=== PATIENT | female | born 1965 | race Caucasian/White ===

== ENCOUNTER 2017-04-12 16:51 | Observation (INO) | payer BC ==
[~2017-04-12] VITALS: Ht 177.8 cm; Wt 150.5 kg
[2017-04-12] MEDS ORDERED: POTASSIUM99 M1 PO (17:23)
[2017-04-12] MEDS ORDERED: VITAMIN D31000 UNI2 PO (17:23)
[2017-04-12 17:25] VITALS: BP 190/123; BMI 46.0
[2017-04-12 18:40] LABS: BASOPHILS 0.3 % (0-2); EOSINOPHILS 1.2 % (0-7); HEMATOCRIT 44.8 % (36.0-48.0); HEMOGLOBIN 14.9 g/dL (12-16); IMMATURE GRANULOCYTES 0.1 % (0-5); MCH 33.9 pg (26.0-34.0); MCHC 33.3 g/dL (31.0-37.0); MCV 102.1 fL (80.0-100.0); MONOCYTES 6.5 % (2-11); NEUTROPHILS 77.9 % (40-80); PLATELET COUNT 173 10x3/uL (130-400); RBC 4.39 10x6/uL (4.00-5.40); RDW 13.7 % (11.5-14.5); WBC 8.9 10x3/uL (4.8-10.8)
[2017-04-12 19:23] LABS: ALBUMIN 3.6 g/dL (3.4-5.0); ALKALINE PHOSPHATASE 84 U/L (46-116); ALT (SGPT) 72 U/L (10-68); BILIRUBIN - TOTAL 0.54 mg/dL (0.2-1.3); CALC OSMOLALITY 276 mosm/kg (275-300); CALCIUM 8.8 mg/dL (8.5-10.1); CARBON DIOXIDE 25.7 mmol/L (21.0-32.0); CHLORIDE - SERUM 100 mmol/L (98-107); CKMB 0.6 U/L (0.0-3.6); CREATINE KINASE 64 UL (21-215); CREATININE - SERUM 0.8 mg/dL (0.6-1.3); GLUCOSE 145 mg/dL (74-106); POTASSIUM - SERUM 3.6 mmol/L (3.5-5.1); PROTEIN - SERUM 7.9 g/dL (6.4-8.2); SODIUM 138 mmol/L (136-145); UREA NITROGEN 7 mg/dL (7-18); eGFR NON AFRICAN AMERICAN 80 mL/min (90-120)
[2017-04-12 19:24] LABS: TROPONIN-I < 0.017 ng/mL (0.000-0.060)
[2017-04-12 20:46] VITALS: BP 187/113
[2017-04-13 01:15] LABS: CKMB 0.4 U/L (0.0-3.6); CREATINE KINASE 72 UL (21-215)
[2017-04-13 01:16] LABS: TROPONIN-I < 0.017 ng/mL (0.000-0.060)
[2017-04-13 05:30] LABS: CKMB 0.6 U/L (0.0-3.6); CREATINE KINASE 85 UL (21-215)
[2017-04-13 05:35] LABS: TROPONIN-I < 0.017 ng/mL (0.000-0.060)
[2017-04-13 06:57] VITALS: BP 188/108
[2017-04-13 10:06] VITALS: Ht 177.8 cm; Wt 150.5 kg
[2017-04-13 10:27] VITALS: BP 183/96
[2017-04-13 12:45] VITALS: BP 146/76
[2017-04-13 16:25] VITALS: BP 171/95
[2017-04-13 17:34] LABS: T4 THYROXIN - FREE 1.07 ng/dL (0.76-1.46); THYROID STIMULATING HORMONE 6.12 uIU/mL (0.36-3.74)
[2017-04-13 20:49] VITALS: BP 166/95
[2017-04-14 03:51] VITALS: BP 162/98
[2017-04-14 05:17] LABS: BASOPHILS 0.3 % (0-2); HEMATOCRIT 43.9 % (36.0-48.0); HEMOGLOBIN 14.7 g/dL (12-16); IMMATURE GRANULOCYTES 0.1 % (0-5); LYMPHOCYTES 27.1 % (15-50); MCH 33.6 pg (26.0-34.0); MCHC 33.5 g/dL (31.0-37.0); MCV 100.5 fL (80.0-100.0); MEAN PLATELET VOLUME 10.7 fL (7.4-10.4); NEUTROPHILS 60.5 % (40-80); PLATELET COUNT 157 10x3/uL (130-400); RBC 4.37 10x6/uL (4.00-5.40); RDW 13.4 % (11.5-14.5)
[2017-04-14 05:33] LABS: CALC OSMOLALITY 273 mosm/kg (275-300); CALCIUM 8.7 mg/dL (8.5-10.1); CARBON DIOXIDE 29.6 mmol/L (21.0-32.0); CHLORIDE - SERUM 100 mmol/L (98-107); CREATININE - SERUM 0.7 mg/dL (0.6-1.3); POTASSIUM - SERUM 3.3 mmol/L (3.5-5.1); SODIUM 138 mmol/L (136-145); UREA NITROGEN 6 mg/dL (7-18); eGFR NON AFRICAN AMERICAN > 90 mL/min (90-120)
[2017-04-14 05:35] LABS: GLUCOSE 97 mg/dL (74-106)
[2017-04-14 06:33] VITALS: BP 154/94
[2017-04-14 09:46] VITALS: BP 143/95
[2017-04-14 12:50] VITALS: BP 145/73
[2017-04-14] MEDS ORDERED: LOPRESSOR25 MG PO (13:24)
[2017-04-14] MEDS ORDERED: BENZONATATE200 MG PO (13:25)
[2017-04-14] MEDS ORDERED: CHLORTHALIDONE25 MG PO (13:25)
== END 2017-04-14 16:01 | disposition home or self-care (01) ==
LOC: D.M2 16:51 → OBSVTIME 16:52 → D.M2 04-14 16:01
PROVIDERS: Family Medicine; Internal Medicine Nephrology
DX: J18.9 Pneumonia, unspecified organism (principal); I16.0 Hypertensive urgency; Z85.3 Personal history of malignant neoplasm of breast; R00.0 Tachycardia, unspecified